=== PATIENT | female | born 1950 | race Caucasian/White ===

== ENCOUNTER 2023-05-27 11:22 | Outpatient (OUT) | payer MEDICARE, SELFPAY | END 2023-05-27 11:23 | disposition home or self-care (01) | LOC: PST 11:22 | PROVIDERS: Visit Provider Ophthalmology | DX: Z01.818 Encounter for other preprocedural examination (principal); H25.12 Age-related nuclear cataract, left eye ==

== ENCOUNTER 2023-06-03 06:47 | Day surgery (SDC) | payer MEDICARE, SELFPAY ==
--- NOTE | 2023-06-03 | OP_ITS ---
OPERATION DATE: ??06/03/2023 SURGEON:? Kaleb iNcole M.D. PREOPERATIVE DIAGNOSIS:? Nuclear sclerotic cataract left eye. POSTOPERATIVE DIAGNOSIS:? Nuclear sclerotic cataract left eye. PROCEDURE:? Cataract extraction with intraocular lens placement for the left eye. ANESTHESIA:? Topical ESTIMATED BLOOD LOSS:? Zero. COMPLICATIONS:? None. PROCEDURE:? The patient was brought to the Operating Room in supine position.? After proper identification, the left eye was prepped and draped in a sterile ophthalmic fashion.? A paracentesis created at the 5 o'clock position.? Approximately 1 cc of unpreserved Xylocaine was injected into the anterior chamber followed by Amvisc Plus.? Using a 2.4 mm Keratome blade, a clear corneal incision was created at the 3 o'clock limbus.? A cystotome was then used to begin a curvilinear capsulorrhexis that was continued for 360 degrees with the Utrata forceps.? BSS on a 26 gauge cannula was injected beneath the anterior capsule to hydrodissect as well as hydrodelineate the lens.? After ensuring mobility, phacoemulsification was performed in a [id number]-type fashion.? After all nuclear material had been removed from the eye, IA was introduced and all residual cortical material was cleaned up.? Additional Amvisc Plus was injected into the posterior bag and a lens model MX60, 14.0 diopters was injected and dialed into position.? After ensuring centration, IA was reintroduced into the anterior chamber and all residual Amvisc Plus was removed from the eye.? BSS on a 30 gauge cannula was injected into the stroma of both the clear corneal incision as well as paracentesis to hydrate the wounds.? Additional BSS was injected into the anterior chamber to pressurize the eye at approximately 20 to 22 mmHg by finger tension.? 0.1 cc of antibiotic was injected into the anterior chamber.? Weck-Iris sponges were used to check the wounds to be watertight.? One drop of apraclonidine and one drop of prednisolone acetate placed into the eye and a shield was placed over top. The patient was sent to the postoperative area in satisfactory condition to follow up the following day for postoperative care. MATTIE
--- NOTE | 2023-06-03 06:47 | HP_ITS ---
PREOPERATIVE HISTORY AND PHYSICAL ? Date:? 06/02/2023 ? HISTORY:? The patient is a 72-year-old white female with complaints of declining vision out of her left eye.? She believes that the duration of this has gradually worsened over the last year.? She states having difficulty reading and seeing tasks up close such as crossword puzzle clues.? She also states having difficulty at night time while driving because of glare and halos from headlights.? ? PAST OCULAR HISTORY:? Denies. ? PAST MEDICAL HISTORY:? 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 ? SOCIAL HISTORY:? Was a former smoker.? Denies alcohol or recreational drug abuse.? ? SYSTEMIC MEDICATIONS:? Include nabumetone.? ? ALLERGIES:? To penicillin. ? REVIEW OF SYSTEMS:? No pertinent positives. ? PHYSICAL EXAM:? GENERAL:? In general, she is awake, alert and oriented x3, well developed, well nourished, in no acute distress.? ? HEART:? Regular rate and rhythm. ? LUNGS:? Clear bilaterally. ? ABDOMEN:? Soft, non-tender, non-distended. ? EXTREMITIES:? No pitting edema. ? OPHTHALMIC EXAM:? Revealed a visual acuity of 20/25 in the right and 20/80 in the left ?that glared to 20/200 in the right and 20/400 in the left.? Pupils motility, muscle balance, confrontational visual ellis within normal limits bilaterally.? Pressures were measured at 18 bilaterally.? Slit lamp exam revealed blepharitis with a severe decrease in tear film bilaterally.? Conjunctiva, cornea, anterior chamber and iris were within normal limits bilaterally.? Lens status demonstrated 3+ nuclear sclerosis with vacuoles and 1+ cortical changes in the right eye and 3+ nuclear sclerosis with 2+ cortical changes and 1+ anterior subcapsular cataract in the left eye.? ? FUNDUS EXAM:? Revealed some macular pigment epithelial mottling.? Otherwise, discs, vessels, periphery and vitreous were within normal limits bilaterally. ? ASSESSMENT AND PLAN:? Visually significant cataract, left eye.? After risks, benefits, alternatives, as well as expectations were delivered to the patient, she elected to go forward with cataract removal.? She understands the risks include but not limited to infection, bleeding, loss of vision, loss of the eye itself.? Secondly, she understands postoperatively she is likely to require spectacle correction for best visual acuity.? Finally, a complete ophthalmic exam was performed, there is not determined to be any other source of visual decline other than that of the cataract.? ? After understanding all the risks as well as expectations, she elected to go forward with procedure as listed above and will be doing so in the near future. MATTIE
[2023-06-03] MEDS: DIAZEPAM 5 MG TABLET PO (07:09)
[2023-06-03] MEDS: PHENYLEPHRINE HCL 2.5% OP SOL 40 DROP/2 ML BOTTLE EYE-LEFT ×4 (07:10→07:32)
[2023-06-03] MEDS: TROPICAMIDE 1% OP SOL 300 DROP/15 ML BOTTLE EYE-LEFT ×4 (07:10→07:32)
[2023-06-03] MEDS: CYCLOPENTOLATE HCL 1% OP SOL 40 DROP/2 ML BOTTLE EYE-LEFT ×4 (07:11→07:33)
[2023-06-03] MEDS: BESIFLOXACIN HCL 100 DROP DROPS.SUSP OP ×4 (07:12→07:34)
[2023-06-03] MEDS: BETADINE POVIDONE-IODINE 5% OP SOL 30 ML BOTTLE OP (08:00)
[2023-06-03] MEDS: LIDOCAINE 2% JELLY 10 ML UR (08:00)
[2023-06-03] MEDS: PROPARACAINE HCL 0.5% 300 DROP/15 ML BOTTLE OP (08:00)
[2023-06-03 08:21] VITALS: BP 148/87; PULSE 56; RESP 18; O2SAT 97
[2023-06-03] MEDS: LIDOCAINE HCL 1% PF 20 MG/2 ML VIAL 1 ML INJ (08:21)
[2023-06-03] MEDS: PHENYLEPHRINE/KETOROLAC 1-0.3% ML VIAL 4 ML IRR (08:25)
[2023-06-03] MEDS: TETRACAINE HCL 0.5% OP SOL 80 DROP/4 ML BOTTLE OP (08:25)
[2023-06-03] MEDS: HYALURONATE SODIUM 16 MG/ML SYRINGE EYE-LEFT (08:25)
[2023-06-03] MEDS: PREDNISOLONE ACETATE OP 1% SUSP 100 DROPS/5 ML 1 DROP OP (08:32)
[2023-06-03] MEDS: APRACLONIDINE HCL 100 DROP/5 ML BOTTLE OP (08:32)
[2023-06-03 08:33] VITALS: BP 139/86; PULSE 59; RESP 16; O2SAT 97
== END 2023-06-03 08:45 | disposition home or self-care (01) ==
PROVIDERS: PCP Family Medicine; Visit Provider Ophthalmology
PROC: (CPT 66984; principal; 2023-06-03 08:00)
DX: H25.12 Age-related nuclear cataract, left eye (principal); Z85.810 Personal history of malignant neoplasm of tongue; Z87.891 Personal history of nicotine dependence; Z79.899 Other long term (current) drug therapy
CPT/HCPCS: 66984; V2630

== ENCOUNTER 2023-06-22 07:33 | Outpatient (OUT) | payer MEDICARE, SELFPAY | END 2023-06-22 07:34 | disposition home or self-care (01) | LOC: PST 07:34 | PROVIDERS: PCP Family Medicine; Visit Provider Ophthalmology | DX: Z01.818 Encounter for other preprocedural examination (principal); H25.811 Combined forms of age-related cataract, right eye ==

== ENCOUNTER 2023-06-24 06:59 | Day surgery (SDC) | payer MEDICARE, SELFPAY ==
--- NOTE | 2023-06-23 | HP_ITS ---
PREOPERATIVE HISTORY AND PHYSICAL Date:? 06/23/2023 HISTORY:? The patient is a 72-year-old white female with complaints of declining vision out of her right eye.? The onset of this has been gradual, over the last year.? She states having difficulty reading and night driving has become more difficult.? She describes activities of daily living such as reading, as well as working on the computer, have become more difficult.? PAST OCULAR HISTORY / PAST MEDICAL HISTORY / SOCIAL HISTORY / MEDICATIONS / ALLERGIES TO MEDICATIONS / REVIEW OF SYSTEMS / PHYSICAL EXAM:? Unchanged from previously dictated. ASSESSMENT / PLAN: Visually significant cataract right eye.? After risks, benefits, alternatives, as well as expectations were delivered to the patient, she elected to go forward with cataract removal.? She understands the risks include but not limited to infection, bleeding, loss of vision, loss of the eye itself.? Secondly, she understands that postoperatively she is likely to require spectacle correction for her best visual acuity.? Finally, a complete ophthalmic exam was performed and there is not determined to be any other source of visual decline other than that of the cataract. After understanding all the risks as well as expectations, she elected to go forward with the procedure as listed above and will be doing so in the near future. MATTIE
--- NOTE | 2023-06-24 | OP_ITS ---
OPERATION DATE: ??06/24/2023 SURGEON:? Kaleb Nicole M.D. PREOPERATIVE DIAGNOSIS:? Nuclear sclerotic cataract right eye. POSTOPERATIVE DIAGNOSIS:? Nuclear sclerotic cataract right eye. PROCEDURE NAME:? Cataract extraction with intraocular lens placement for the right eye. ANESTHESIA:? Topical. ESTIMATED BLOOD LOSS:? Zero. COMPLICATIONS:? None. PROCEDURE:? The patient was brought to the operating room in supine position.? After proper identification, the right eye was prepped and draped in a sterile ophthalmic fashion.? A paracentesis was created at the 11 o'clock position.? Approximately 1 mL of unpreserved Xylocaine was injected into the anterior chamber followed by Amvisc Plus.? Using a 2.6 mm Keratome blade, a clear corneal incision was created at the 8 o'clock limbus.? A cystotome was then used to begin a curvilinear capsulorrhexis that was continued for 360 degrees with the Utrata forceps.? BSS on a 26 gauge cannula was injected beneath the anterior capsule to hydrodissect as well as hydrodelineate the lens.? After ensuring mobility, phacoemulsification was performed in a [id number]-type fashion.? After all nuclear material had been removed from the eye, IA was introduced and all residual cortical material was cleaned up.? Additional Amvisc Plus was injected into the posterior bag and a lens model MX60, 15.5 diopters was then injected and dialed into position.? After ensuring centration, IA was reintroduced into the anterior chamber and all residual Amvisc Plus was removed from the eye.?? BSS on a 30 gauge cannula was injected into the stroma of both the clear corneal incision as well as the paracentesis to hydrate the wounds.? Additional BSS was injected into the anterior chamber to pressurize the eye at approximately 20 to 22 mmHg by finger tension.? 0.1 mL of antibiotic was injected into the anterior chamber.? Weck-Iris sponges were used to check the wounds to be watertight.? One drop of Apraclonidine and one drop of prednisolone acetate were placed into the eye and a shield was placed over top. The patient was then sent to the postoperative area in satisfactory condition to follow up the following day for postoperative care. MATTIE
[2023-06-24] MEDS: PHENYLEPHRINE HCL 2.5% OP SOL 40 DROP/2 ML BOTTLE OP ×4 (07:08→07:27)
[2023-06-24] MEDS: CYCLOPENTOLATE HCL 1% OP SOL 40 DROP/2 ML BOTTLE OP ×4 (07:08→07:27)
[2023-06-24] MEDS: TROPICAMIDE 1% OP SOL 300 DROP/15 ML BOTTLE OP ×4 (07:08→07:27)
[2023-06-24] MEDS: BESIFLOXACIN HCL 100 DROP DROPS.SUSP OP ×4 (07:09→07:28)
[2023-06-24] MEDS: DIAZEPAM 5 MG TABLET PO (07:14)
[2023-06-24 07:31] VITALS: BP 121/63; PULSE 72; RESP 16; O2SAT 96
[2023-06-24 08:13] VITALS: BP 133/84; BP 137/83; PULSE 62; PULSE 64; RESP 16; RESP 18; O2SAT 98; O2SAT 99
[2023-06-24] MEDS: BETADINE POVIDONE-IODINE 5% OP SOL 30 ML BOTTLE OP (08:13)
[2023-06-24] MEDS: HYALURONATE SODIUM 16 MG/ML SYRINGE EYE-RIGHT (08:15)
[2023-06-24] MEDS: PHENYLEPHRINE/KETOROLAC 1-0.3% ML VIAL 4 ML IRR (08:15)
[2023-06-24] MEDS: APRACLONIDINE HCL 100 DROP/5 ML BOTTLE OP (08:15)
[2023-06-24] MEDS: PROPARACAINE HCL 0.5% 300 DROP/15 ML BOTTLE OP (08:15)
[2023-06-24] MEDS: LIDOCAINE 2% JELLY 10 ML UR (08:15)
[2023-06-24] MEDS: LIDOCAINE HCL 1% PF 20 MG/2 ML VIAL 1 ML INJ (08:16)
[2023-06-24] MEDS: PREDNISOLONE ACETATE OP 1% SUSP 100 DROPS/5 ML 1 DROP OP (08:18)
[2023-06-24] MEDS: TETRACAINE HCL 0.5% OP SOL 80 DROP/4 ML BOTTLE OP (08:18)
[2023-06-24] MEDS: CEFUROXIME SODIUM 750 MG, 0.9 % SODIUM CHLORIDE 16.3 ML OP (08:18)
== END 2023-06-24 08:30 | disposition home or self-care (01) ==
PROVIDERS: PCP Family Medicine; Visit Provider Ophthalmology
PROC: (CPT 66984; principal; 2023-06-24 08:00)
DX: H25.811 Combined forms of age-related cataract, right eye (principal)
CPT/HCPCS: 66984; V2630